=== PATIENT | female | born 1995 | race Caucasian/White ===

== ENCOUNTER 2024-06-14 00:08 | Emergency (ER) | payer OTHER ==
[2024-06-14 00:19] VITALS: BP 138/89; PULSE 125; RESP 17; TEMP 97.9; BMI 23.6
== END 2024-06-14 00:38 | disposition home or self-care (01) ==
LOC: FER 00:08
PROC: 2W3VXYZ Immobilization of Left Toe using Other Device (ICD-10-PCS; principal; 2024-06-14)
DX: S93.105A Unspecified dislocation of left toe(s), initial encounter (principal); W23.1XXA Caught, crushed, jammed, or pinched between stationary objects, initial encounter
CPT/HCPCS: 99283-25